=== PATIENT | female | born 1940 | race Caucasian/White ===

== ENCOUNTER 2023-09-09 12:38 | Inpatient (IN) | payer MEDICARE, OTHER ==
[2023-09-09 13:10] LABS: #Basophils Less than 0.03 10x3/uL (0.0-0.2); #Eosinphils Less than 0.03 10x3/uL (0.0-0.7); %Basophils 0.1 % (0.0-1.0); %Eosinophils 0.1 % (0.0-10.0); %Lymphocytes 3.1 % (21.0-51.0); %Monocytes 4.1 % (0.0-10.0); %Neutrophils 92.1 % (42.0-75.0); Hemoglobin 11.1 g/dL (12.0-16.0); Mean Corpuscular HGB CONC 31.7 g/dL (32.0-36.0); Mean Corpuscular Hemoglobin 23.1 pg (27.0-31.0); Mean Corpuscular Volume 72.8 fL (78.0-98.0); Platelet Count 357 10x3/uL (130-400); RBC Distribution Width 19.4 % (11.5-14.5); Red Blood Cell (RBC) Count 4.81 mill/uL (4.20-5.40)
[2023-09-09 13:20] LABS: INR-International Normal Ratio 1.1; PTT 31.1 sec (22.9-36.1); Prothrombin Time 14.4 sec (12.0-14.7)
[2023-09-09 13:23] LABS: ALT (SGPT) 19 U/L (8-55); AST (SGOT) 29 U/L (5-34); Alkaline Phosphatase 118 U/L (40-110); Anion Gap 17 mmol/L (10-20); BUN (Urea Nitrogen) 29 mg/dL (9.8-20.1); Bilirubin, Total 0.7 mg/dL (0.2-1.2); Calc. Creatinine Clearance 0 mL/min (70-130); Calcium 9.1 mg/dL (7.8-10.44); Carbon Dioxide 20 mmol/L (23-31); Chloride 101 mmol/L (98-107); Estimated GFR 64; Globulin 4.2 g/dL (2.4-3.5); Glucose 183 mg/dL (83-110); Potassium 4.1 mmol/L (3.5-5.1); Protein, Total 7.2 g/dL (5.8-8.1); Sodium 134 mmol/L (136-145)
[2023-09-09 13:38] LABS: Troponin I 0.413 ng/mL (< 0.028)
[2023-09-09] MEDS ORDERED: niCARdipine 25 MG/10 ML SDV ONE (13:43)
[2023-09-09] MEDS ORDERED: Metoprolol Tartrate 5 MG (5 mL) VIAL ONE (13:54)
[2023-09-09] MEDS ORDERED: Lorazepam 2 MG/ML VIAL ONE (14:24)
[2023-09-09] MEDS ORDERED: Labetalol HCl 100 MG/20 ML VIAL ONE (15:25)
[2023-09-09] MEDS ORDERED: Haloperidol Lactate 5 MG/ML VIAL ONE (15:36)
[2023-09-09 16:17] LABS: Hemoglobin A1c 5.1 % (4.0-6.0)
[2023-09-09 16:41] LABS: Bacteria/HPF 4+ HPF (None Seen); Bilirubin Negative (Negative); Blood, Urine 1+ (Negative); CAUTI Indications for Culture Alt mental st,lethar; Clarity Clear (Clear); Glucose, Urine (Dipstick) Normal (Negative); Ketone, Urine Negative (Negative); Leukocyte Negative Leu/uL (Negative); Nitrite Negative (Negative); Protein, Urine (Dipstick) 100 mg/dL (Neg-Trace); Specific Gravity, Urine 1.035 (1.002-1.036); Squamous Epithelial None Seen HPF (0-3); Urobilinogen Normal mg/dL (Less than 2)
[2023-09-09 17:07] LABS: Yeast-Budding Rare HPF (None Seen)
[2023-09-09 17:08] LABS: Urine Culture Reflex No No
[2023-09-09 17:18] VITALS: BMI 20.7
[2023-09-09] MEDS: Metoprolol Tartrate 5 MG (5 mL) VIAL IVP PRN (17:55)
[2023-09-09] MEDS: Acetaminophen 325 MG TAB PO SCH (18:09)
[2023-09-09 18:14] LABS: Lactic Acid 2.7 mmol/L (0.5-2.2)
[2023-09-09] MEDS: Atorvastatin Calcium 40 MG TAB PO SCH (20:51)
[2023-09-09] MEDS: OLANZapine 10 MG VIAL IM SCH (20:59)
[2023-09-09] MEDS: Labetalol HCl 100 MG/20 ML VIAL SLOW IVP PRN (21:57)
[2023-09-10] MEDS: Haloperidol Lactate 5 MG/ML VIAL SLOW IVP SCH (02:15)
[2023-09-10 04:53] LABS: #Basophils Less than 0.03 10x3/uL (0.0-0.2); #Eosinphils Less than 0.03 10x3/uL (0.0-0.7); %Basophils 0.2 % (0.0-1.0); %Lymphocytes 9.6 % (21.0-51.0); %Monocytes 7.2 % (0.0-10.0); %Neutrophils 82.5 % (42.0-75.0); Hematocrit 33.8 % (36.0-47.0); Hemoglobin 10.4 g/dL (12.0-16.0); Mean Corpuscular HGB CONC 30.8 g/dL (32.0-36.0); Mean Corpuscular Hemoglobin 23.6 pg (27.0-31.0); Mean Corpuscular Volume 76.6 fL (78.0-98.0); Mean Platelet Volume 9.2 fL (7.4-10.4); Platelet Count 289 10x3/uL (130-400); RBC Distribution Width 19.7 % (11.5-14.5); Red Blood Cell (RBC) Count 4.41 mill/uL (4.20-5.40)
[2023-09-10 05:20] LABS: Anion Gap 15 mmol/L (10-20); BUN (Urea Nitrogen) 18 mg/dL (9.8-20.1); Calc. Creatinine Clearance 43 mL/min (70-130); Calcium 8.9 mg/dL (7.8-10.44); Carbon Dioxide 20 mmol/L (23-31); Chloride 102 mmol/L (98-107); Cholesterol 159 mg/dl (< 200 Desired); Estimated GFR 85; Glucose 111 mg/dL (83-110); HDL Cholesterol 53 mg/dL (>60 Neg Risk); LDL Cholesterol, Calculated 92 mg/dL; Potassium 3.8 mmol/L (3.5-5.1); Sodium 133 mmol/L (136-145); Triglycerides 68 mg/dL (Less than 150)
[2023-09-10] MEDS ORDERED: Glucagon 1 MG/ML KIT IM PRN (08:20)
[2023-09-10] MEDS ORDERED: Dextrose 5% in Water 1,000 ML IV PRN (08:20)
[2023-09-10] MEDS ORDERED: Insulin Lispro 100 UNIT/ML 10 ML VIAL SC PRN ×2 (08:20→08:27)
[2023-09-10] MEDS ORDERED: Dextrose 50% Abboject 50 ML SYRINGE SLOW IVP PRN (08:20)
[2023-09-10] MEDS: Aspirin 300 MG Suppository PR SCH (09:03)
[2023-09-10] MEDS: Dextrose 5%-Lactated Ringers 1,000 ML IV SCH (09:03)
[2023-09-10] MEDS: Aspirin 81 mg Enteric Coated Tablet PO SCH (09:06)
[2023-09-10] MEDS: cefTRIAXone\\ROCEPHIN 1 GM in Sodium Chloride 0.9% 100 ML IVPB SCH (09:17)
[2023-09-10] MEDS: Acetaminophen 650 MG Suppository PR PRN (14:50)
[2023-09-11] MEDS: Metoprolol Tartrate 5 MG (5 mL) VIAL IVP SCH (05:29)
[2023-09-11] MEDS: dilTIAZem 25 MG/5 ML VIAL ONE (05:29)
[2023-09-11] MEDS: dilTIAZem 25 MG/5 ML VIAL SLOW IVP SCH (05:29)
[2023-09-11] MEDS ORDERED: Enalaprilat Dihydrate 1.25 MG/ML VIAL SLOW IVP SCH (12:00)
[2023-09-11] MEDS: Enalaprilat Dihydrate 1.25 MG/ML VIAL SLOW IVP SCH (12:22)
[2023-09-11 12:46] LABS: Anion Gap 14 mmol/L (10-20); BUN (Urea Nitrogen) 15 mg/dL (9.8-20.1); Calc. Creatinine Clearance 47 mL/min (70-130); Calcium 8.7 mg/dL (7.8-10.44); Carbon Dioxide 22 mmol/L (23-31); Chloride 101 mmol/L (98-107); Estimated GFR 87; Glucose 112 mg/dL (83-110); Magnesium 1.8 mg/dL (1.6-2.6); Potassium 3.2 mmol/L (3.5-5.1); Sodium 134 mmol/L (136-145)
[2023-09-11] MEDS: dilTIAZem 125 MG, Admixture Fee 1 EACH in Sodium Chloride 0.9% 100 ML IVPB SCH (21:33)
[2023-09-12 05:16] LABS: Anion Gap 13 mmol/L (10-20); BUN (Urea Nitrogen) 15 mg/dL (9.8-20.1); Calc. Creatinine Clearance 47 mL/min (70-130); Calcium 8.6 mg/dL (7.8-10.44); Carbon Dioxide 21 mmol/L (23-31); Chloride 103 mmol/L (98-107); Estimated GFR 87; Glucose 95 mg/dL (83-110); Magnesium 1.7 mg/dL (1.6-2.6); Potassium 3.1 mmol/L (3.5-5.1); Sodium 134 mmol/L (136-145)
[2023-09-12] MEDS: Labetalol HCl 100 MG/20 ML VIAL SLOW IVP PRN (07:46)
[2023-09-12] MEDS ORDERED: Senokot S 8.6-50 MG TAB PO PRN (11:39)
[2023-09-12] MEDS ORDERED: Loperamide HCl 2 MG CAP PO PRN (11:39)
[2023-09-12] MEDS ORDERED: Ondansetron ODT 4 MG TAB PO PRN (11:39)
[2023-09-12] MEDS ORDERED: Morphine 20 MG/ML Oral Solution (ROXANOL) SL PRN (11:39)
[2023-09-12] MEDS ORDERED: Zolpidem Tartrate 5 MG TAB PO PRN (11:39)
[2023-09-12] MEDS ORDERED: Ondansetron PF 4 MG/2 ML Vial IVP PRN (11:39)
[2023-09-12] MEDS ORDERED: Lorazepam 2 MG/ML VIAL SLOW IVP PRN (11:39)
[2023-09-12 16:29] VITALS: BP 177/79; TEMP 98.4
[2023-09-12] MEDS: Morphine 2 MG/ML VIAL SLOW IVP PRN (19:16)
== END 2023-09-12 19:30 | disposition hospice, home (50) | DRG 64 ==
LOC: SUATTDRO 12:38 → ERS 12:38 → 2SE 14:57
PROVIDERS: ADMIT Internal Medicine; ATTEND Internal Medicine
DX: I63.512 Cerebral infarction due to unspecified occlusion or stenosis of left middle cerebral artery (principal); I21.A1 Myocardial infarction type 2; E87.20 Acidosis, unspecified; G81.93 Hemiplegia, unspecified affecting right nondominant side; Z66 Do not resuscitate; Z51.5 Encounter for palliative care; I48.0 Paroxysmal atrial fibrillation; M17.0 Bilateral primary osteoarthritis of knee; R45.1 Restlessness and agitation; I10 Essential (primary) hypertension; E86.0 Dehydration; D50.9 Iron deficiency anemia, unspecified; Z98.51 Tubal ligation status
CPT/HCPCS: 36415; 36416; 51701; 70450; 70496; 70498; 71045; 72125; 80048; 80053; 80061; 81001; 83036; 83605; 83735; 84145; 84443; 84484; 85025; 85610; 85730; 86850; 86900; 86901; 87040; 87077; 87086; 87149; 87186; 93005; 93970; 96365; 96366; 96375; J0696; J1630; J2060; J2272; J3490